=== PATIENT | female | born 1950 | race Caucasian/White ===

== ENCOUNTER 2024-09-03 15:37 | Emergency (ER) | payer MEDICARE, OTHER, SELFPAY ==
[2024-09-03 15:49] VITALS: BP 143/77; PULSE 73; RESP 18; TEMP 36.6; O2SAT 95; BMI 39.4
--- NOTE | 2024-09-03 15:52 | XR_ITS ---
Examination: PA chest single view TECHNIQUE: Upright PA chest single view Exam date and time: September 03, 2024 1645 hours INDICATIONS: Bilateral leg swelling 2 weeks. FINDINGS: Minimal prominence left ventricle Moderate vascular congestion No lobar pneumonia No pulmonary edema Moderate osteopenia IMPRESSION: Moderate vascular congestion, no beatrice pulmonary edema
--- NOTE | 2024-09-03 15:52 | XR_ITS ---
Examination: Venous duplex lower extremity sonogram, bilateral. Date and time of exam: September 03, 2024 1602 hours INDICATIONS: Bilateral leg swelling beginning 2 weeks ago Technique: Multiple sonographic images of the deep venous system have been obtained. B-mode/2-D grayscale imaging of vascular structures and Doppler spectral analysis (waveforms) and color performed Both legs are examined. Findings: Deep venous systems do not demonstrate abnormal echogenicity. All visualized deep veins exhibit compressibility. All visualized deep veins exhibit augmentation. Impression: Negative for deep vein thrombosis
--- NOTE | 2024-09-03 15:54 | EKG_ITS ---
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
--- NOTE | 2024-09-03 15:54 | EDNOTE_ITS ---
ED General RME/HPI General Chief complaint: General Adult/Misc Complain Stated complaint: BLE SWELLING Time Seen by Provider: 09/03/24 15:45 Arrival date/time: 09/03/24 15:37 RME / HPI RME / HPI narrative: 73-year-old female patient with significant history of hypertension, diabetes mellitus, congestive heart failure, currently taking Lasix 40 mg daily, came in for evaluation regarding worsening lower leg swelling for the last 2 weeks. Patient is also complaining of shortness of breath, severity mild denies any orthopnea denies any dyspnea on exertion denies any leg pain denies any other complaints patient was advised by her PCP to come to the emergency room for further evaluation. Related Data Allergies Allergy/AdvReac Type Severity Reaction Status Date / Time cephalexin [From Keflex] Allergy Severe Rash Verified 04/13/21 14:48 Review of Systems Review of Systems Narrative Review of Systems: Review of system reviewed and within normal limits except mentioned in HPI ED Exam Narrative Physical exam: VITAL SIGNS: Reviewed. GENERAL APPEARANCE: Alert and interactive, follows commands, no acute distress, HEAD AND FACE: Non-traumatic. ENT: PERRL, pink conjunctivitis, eyelid no trauma, Mucous membrane moist. NECK: Supple, nontender, no nuchal rigidity. CHEST: No tenderness, no crepitus, no paradoxical movement, no retractions. LUNGS: Clear, well ventilated, symmetric, no rales, no wheezing, no ronchi, no stridor, good breath sounds bilaterally. HEART: Regular rate, regular rhythm, no murmur, no gallops. ABDOMEN: Soft, positive bowel sounds, nondistended, no guarding, nontender, no rebound, no masses, RECTAL: Deferred. GENITAL: Deferred. NEUROLOGICAL: Gross motor function intact sensory function intact, Appropriate for age. MUSCULOSKELETAL: low back nontender, full range of motion. EXTREMITIES: Bilateral lower extremity edema +2 no redness nontender, full range of motion. SKIN: Color pink, dry, no rash, no lacerations, no abrasions, no contusions. LYMPHATICS: Deferred. Course Quality Measures none Orders Category Date Time Status EKG (ED ONLY) *Do not use* NOW Care 09/03/24 15:54 Completed EKG (ED Only) Stat Exams 09/03/24 15:54 Draft US venous doppler LE BI Stat Exams 09/03/24 15:52 Completed XR chest 1V Stat Exams 09/03/24 15:52 Completed B-Type Natriuretic Peptide Stat Lab 09/03/24 17:03 Completed CBC Stat Lab 09/03/24 17:03 Completed Comprehensive Metabolic Panel Stat Lab 09/03/24 17:03 Completed Partial Thromboplastin Time Stat Lab 09/03/24 17:03 Completed Prothrombin Time with INR Stat Lab 09/03/24 17:03 Completed Troponin I Stat Lab 09/03/24 17:03 Completed Furosemide [Lasix] Med 09/03/24 15:52 Discontinued 40 mg PO X1 ONE Vital Signs Vital signs: Vital Signs Temperature 98 F 09/03/24 15:49 Pulse Rate 73 09/03/24 15:49 Respiratory Rate 18 09/03/24 15:49 Blood Pressure 143/77 H 09/03/24 15:49 Pulse Oximetry (%) 95 09/03/24 15:49 Oxygen Delivery Method Room Air 09/03/24 15:49 MDM Patient data External records reviewed:: None Clinical information provided by:: none Social determinants that could affect healthcare access:: none Patient has the following chronic illnesses:: History of congestive heart failure, hypertension How is presenting disease/condition affected by chronic disease/condition?: e xacerbated by Evaluation data The following diagnostics were reviewed and interpreted by me:: lab results and radiology exam(s) Lab and/or radiology exams considered but not ordered:: None Interpretation Summary: EKG as interpreted me shows sinus rhythm, rate of 65 bpm, MD interval 150 MS, no ST segment elevation depression noted. Ultrasound of the lower extremities negative for DVT. Laboratory workup all came back unremarkable Medications Medications considered but not ordered:: None Medication administrations:: Medication Administration History Discontinued Medications Furosemide (Furosemide 40 Mg Tablet) 40 mg PO X1 ONE Stop: 09/03/24 15:53 Last Admin: 09/03/24 18:25 Dose: 40 mg Documented By: CHRIS Joseph Consultations Consultation(s) initiated? (list below): No Diagnosis Differential Diagnosis ED Complaint MDM: Lower leg edema, DVT, congestive heart failure Most likely diagnosis given after review of the tests above:: Lower leg edema Admission Indicated Admission indicated?: not indicated Explain why admission is indicated or not indicated:: Stable for charge Admission Request Was there a request for admission?: No Disposition Plan Disposition Plan: Discharge Discharge Attestation Discharge Attestation: The patient was given an opportunity to ask questions and understood the discharge instructions. Discharge instructions specifically effects, indications for sooner follow up or return to the emergency department, and the expected course of current diagnosis. Patient condition: Stable Medical Decision Making MDM Narrative MDM Narrative: 73-year-old female patient with significant history of hypertension, diabetes mellitus, congestive heart failure, currently taking Lasix 40 mg daily, came in for evaluation regarding worsening lower leg swelling for the last 2 weeks. Patient is also complaining of shortness of breath, severity mild denies any orthopnea denies any dyspnea on exertion denies any leg pain denies any other complaints patient was advised by her PCP to come to the emergency room for further evaluation. Differential Diagnosis Differential Diagnosis: Lower leg edema, DVT, congestive heart failure Lab Data 09/03/24 17:03 09/03/24 17:03 Labs: Lab Results 09/03/24 Range/Units 17:03 WBC 11.7 H (3.6-11.0) Thou/mm3 RBC 3.62 L (4.00-5.20) Miln/mm3 Hgb 10.3 L (12.0-16.0) g/dL Hct 32.9 L (36.0-46.0) % MCV 91 (80-100) fL MCH 28.5 (25.0-35.0) pg MCHC 31.3 (31.0-37.0) g/dl RDW Std Deviation 49.1 H (36.4-46.3) fL Plt Count 240 (140-440) Thou/mm3 Neut % (Auto) 71 (37-80) % Lymph % (Auto) 16 (10-50) % Navarro % (Auto) 7 (0-12) % Eos % (Auto) 5 (0-10) % Baso % (Auto) 1 (0-2.5) % Neut # (Auto) 8.3 H (1.8-7.7) Thou/mm3 Lymph # (Auto) 1.9 (1.0-4.8) Thou/mm3 Navarro # (Auto) 0.8 (0.0-0.8) Thou/mm3 Eos # (Auto) 0.5 (0.0-0.5) Thou/mm3 Baso # (Auto) 0.1 (0.0-0.2) Thou/mm3 Immature Gran # (Auto) 0.05 H (0.00-0.00) Thou/mm3 Absolute Nucleated RBC 0.00 (0.00-0.00) Thou/mm3 Immature Gran % 0 (0-0) % Nucleated RBC % 0 (0) /100 WBC PT 11.4 (9.0-12.2) Seconds INR 1.0 (0.9-1.3) APTT 25.2 (22.0-36.0) Seconds Sodium 140 (136-145) mMol/L Potassium 3.8 (3.4-5.1) mMol/L Chloride 104 (98-107) mMol/L Carbon Dioxide 29.8 (20.0-31.0) mMol/L Anion Gap 6 L (7-16) BUN 12 (9-23) mg/dL Creatinine 1.3 (0.6-1.3) mg/dL Estim Creat Clear Calc 46.7 L (>60) mL/min eGFR 44 L (60 - ) See Note BUN/Creatinine Ratio 9 L (12-20) Ratio Glucose 98 (74-106) mg/dL Calculated Osmolality 279 (275-295) Calcium 9.5 (8.3-10.6) mg/dL Corrected Calcium 9.5 (8.5-10.1) mg/dL Total Bilirubin 0.4 (0.3-1.2) mg/dL AST 16 (0-34) U/L ALT 12 (10-49) U/L Alkaline Phosphatase 103 (46-116) U/L Troponin I < 0.020 (0.0-0.045) ng/mL B-Natriuretic Peptide 169 H (0-100) pg/mL Total Protein 7.6 (5.7-8.2) gm/dL Albumin 4.5 (3.4-4.8) gm/dL Globulin 3.1 (2.3-3.5) gm/dL Albumin/Globulin Ratio 1.5 (1.2-2.2) Discharge Plan Plan Patient Disposition: HOME (Self Care) Disposition Comment: Stable Prescriptions/Referrals Referrals: January Pierson MD [Primary Care Provider] - In 1 week Problem List Clinical Impression: Bilateral edema of lower extremity Patient/Caregiver Discharge Instructions Discharge Activity: activity as tolerated Education Materials: ED Leg Swelling in Both Legs Additional Instructions: Thank you for the opportunity for serving you today. You are stable for discharged . You are advised to: Follow-up with your PCP in 1 to 2 days Return to ED for worsening of symptoms Elevate your legs as needed Continue taking your Lasix, Wear LUISA hose during the during the day Print Language: Persian Stand Alone Forms: Shey Award Info., Patient Portal Info Letter PA/ALARM INSTALLATION TECHNICIAN Supervising Physician NORI/COLETTE Supervising Physician: MD Vanna
[2024-09-03 17:17] LABS: Basophils # (Auto) 0.1 Thou/mm3 (0.0-0.2); Basophils % (Auto) 1 % (0-2.5); Eosinophils # (Auto) 0.5 Thou/mm3 (0.0-0.5); Eosinophils % (Auto) 5 % (0-10); Hematocrit 32.9 % (36.0-46.0); Hemoglobin 10.3 g/dL (12.0-16.0); Immature Granulocytes % (Auto) 0 % (0-0); Immature Granulocytes Auto 0.05 Thou/mm3 (0.00-0.00); Lymphocytes # (Auto) 1.9 Thou/mm3 (1.0-4.8); Lymphocytes % (Auto) 16 % (10-50); Mean Corpuscular HGB Conc 31.3 g/dl (31.0-37.0); Mean Corpuscular Hemoglobin 28.5 pg (25.0-35.0); Mean Corpuscular Volume 91 fL (80-100); Monocytes # (Auto) 0.8 Thou/mm3 (0.0-0.8); Monocytes % (Auto) 7 % (0-12); Neutrophils # (Auto) 8.3 Thou/mm3 (1.8-7.7); Neutrophils % (Auto) 71 % (37-80); Nucleated Red Blood Cell % 0 /100 WBC (0); Platelet Count 240 Thou/mm3 (140-440); RDW Standard Deviation 49.1 fL (36.4-46.3); Red Blood Count 3.62 Miln/mm3 (4.00-5.20); White Blood Count 11.7 Thou/mm3 (3.6-11.0)
[2024-09-03 17:30] LABS: Partial Thromboplastin Time 25.2 Seconds (22.0-36.0); Prothrombin Time 11.4 Seconds (9.0-12.2)
[2024-09-03 17:31] VITALS: BP 167/79; PULSE 98; RESP 18; TEMP 36.9; O2SAT 96
[2024-09-03 17:34] LABS: B-Type Natriuretic Peptide 169 pg/mL (0-100)
[2024-09-03 17:35] LABS: Alanine Aminotransferase 12 U/L (10-49); Albumin, Serum 4.5 gm/dL (3.4-4.8); Albumin/Globulin Ratio 1.5 (1.2-2.2); Alkaline Phosphatase 103 U/L (46-116); Anion Gap 6 (7-16); Aspartate Amino Transferase 16 U/L (0-34); BUN/Creatinine Ratio 9 Ratio (12-20); Bilirubin,Total 0.4 mg/dL (0.3-1.2); Blood Urea Nitrogen 12 mg/dL (9-23); Calcium 9.5 mg/dL (8.3-10.6); Calcium (Corrected) 9.5 mg/dL (8.5-10.1); Carbon Dioxide 29.8 mMol/L (20.0-31.0); Chloride 104 mMol/L (98-107); Creatinine (Component) 1.3 mg/dL (0.6-1.3); Estimated Creatinine Clearance 46.7 mL/min (>60); Globulin 3.1 gm/dL (2.3-3.5); Glucose 98 mg/dL (74-106); Osmolality,Calculated 279 (275-295); Potassium 3.8 mMol/L (3.4-5.1); Sodium 140 mMol/L (136-145); Total Protein 7.6 gm/dL (5.7-8.2); Troponin I < 0.020 ng/mL (0.0-0.045); eGFR 44 See Note
[2024-09-03 18:06] VITALS: BP 150/66; PULSE 63; RESP 16; TEMP 37.1; O2SAT 98
[2024-09-03 18:25] VITALS: BP 150/66; PULSE 66
[2024-09-03] MEDS: Furosemide 40 MG TABLET PO (18:25)
[2024-09-03 19:13] VITALS: BP 160/70; PULSE 64; RESP 18; TEMP 36.7; O2SAT 99
[2024-09-03 21:16] VITALS: BP 150/68; PULSE 66; RESP 17; TEMP 36.7; O2SAT 98
== END 2024-09-03 21:24 | disposition home or self-care (01) ==
PROVIDERS: Nurse Practitioner Family; Emergency Provider Emergency Medicine; PCP Family Medicine
DX: R60.0 Localized edema (principal); R06.02 Shortness of breath; I11.0 Hypertensive heart disease with heart failure; I50.9 Heart failure, unspecified
CPT/HCPCS: 36415; 71045; 80053; 83880; 84484; 85025; 85610; 85730; 93005; 93970; 99284; A9270

== ENCOUNTER → 2025-04-08 | Outpatient (CLI) | payer MEDICARE, SELFPAY ==
--- NOTE | 2025-04-08 10:22 | XR_ITS ---
EXAMINATION: Cervical spine, 5 views Technique: Cervical spine AP, AP odontoid, lateral, bilateral obliques, 5 views Exam date and time: April 08, 2025 1035 hours INDICATIONS: Neck pain several years. FINDINGS: Prominent osteopenia No cervical fracture. Advanced degenerative disc disease C6-C7 with moderate bilateral neural foraminal stenosis Intact odontoid IMPRESSION: Advanced degenerative disc disease C6-C7
--- NOTE | 2025-04-08 10:22 | XR_ITS ---
Examination: Thoracic spine 3 views TECHNIQUE: AP lateral coned lateral upper dorsal spine 3 views Date and time: April 08, 2025 1035 hours INDICATIONS: Upper back pain several years. FINDINGS: Prominent osteopenia No acute thoracic fracture Mild to moderate diffuse thoracic degenerative disc disease Moderate thoracic spondylosis IMPRESSION: Mild to moderate diffuse thoracic degenerative disc disease
--- NOTE | 2025-04-08 10:22 | XR_ITS ---
Examination: Lumbar spine, 5 views Technique: Lumbar spine AP, lateral, coned lateral lower lumbar spine, bilateral obliques 5 views Exam date and time: April 08, 2025 1035 hours INDICATIONS: Low back pain several years. FINDINGS: Prominent osteopenia Moderate diffuse facet arthropathy No lumbar fracture Moderate degenerative disc disease L5-S1 Mild lumbar spondylosis IMPRESSION: Moderate degenerative disc disease L5-S1
== END | disposition home or self-care (01) ==
LOC: CDIM 10:13
PROVIDERS: PCP Internal Medicine; Referring Provider Internal Medicine; Visit Provider Internal Medicine
DX: M50.323 Other cervical disc degeneration at C6-C7 level (principal); M51.34 Other intervertebral disc degeneration, thoracic region; M51.370 Other intervertebral disc degeneration, lumbosacral region with discogenic back pain only
CPT/HCPCS: 72050; 72072; 72110